=== PATIENT | female | born 1960 | race Caucasian/White ===

== ENCOUNTER 2021-11-02 17:03 | Emergency (ER) | payer OTHER, SELFPAY ==
--- NOTE | ~2021-11-02 | XR_ITS ---
EXAMINATION: XR lumbar spine min 4V DATE: 11/02/2021 18:13 INDICATION: Low back pain. Fall. TECHNIQUE: 5 views of lumbar spine were obtained. COMPARISON: None. FINDINGS: There is 4 degrees dextrocurvature of lumbar spine. There is 3 mm anterolisthesis of L3 on L4 and L4 on L5. Vertebral body heights are normal. There is mildly decreased disc height from L2-L3 through L4-L5. There is multilevel facet joint osteoarthritis, severe bilaterally from L3-L4 through L5-S1. IMPRESSION: 1. Mild lumbar spondylosis. Reviewed, dictated and finalized at location E. [employer] IMPRESSION: 1. Mild lumbar spondylosis.
[2021-11-02 17:06] VITALS: BP 109/72; PULSE 66; RESP 18; TEMP 36.6; O2SAT 98
[2021-11-02] MEDS: HYDROcodone/acetaminophen (*CRX) 5-325 MG TABLET 1 TAB PO (17:50)
--- NOTE | 2021-11-02 18:59 | ED.GENADULT ---
HPI - General Adult General Chief complaint: Fall Stated complaint: fall Time Seen by Provider: 11/02/21 17:11 Source: patient Mode of arrival: ambulatory Limitations: no limitations History of Present Illness HPI narrative: Patient is 61-year-old female presented with chief complaint of falling onto the floor when her chair came from under her in the hospital today during clinicals. Patient reports pain to the right lower back. Patient reports that she hit her left upper arm on the chair but denies any bony tenderness. 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 She denies any head impact or loss of consciousness. Related Data Home Medications Medication Instructions Recorded Confirmed aspirin 81 mg PO DAILY 11/02/21 11/02/21 cetirizine [Zyrtec] 10 mg PO DAILY 11/02/21 11/02/21 furosemide [Lasix] 20 mg PO DAILY 11/02/21 11/02/21 pantoprazole 40 mg PO QAM 11/02/21 11/02/21 potassium chloride 20 meq PO DAILY 11/02/21 11/02/21 rivaroxaban [Xarelto] 20 mg PO DAILY 11/02/21 11/02/21 rosuvastatin 10 mg PO DAILY 11/02/21 11/02/21 Allergies Allergy/AdvReac Type Severity Reaction Status Date / Time Penicillins Allergy Rash Verified 11/02/21 17:52 Review of Systems Review of Systems: CONSTITUTIONAL: Denies fever, chills, or sweats. EYES: Denies visual changes, redness, or discharge. ENT: Denies rhinorrhea, congestion, sore throat, or otalgia. CARDIOVASCULAR: Denies chest pain, palpitations, or edema. RESPIRATORY: Denies cough or dyspnea. GASTROINTESTINAL: Denies abdominal pain, nausea, vomiting, or diarrhea. GENITOURINARY: Denies dysuria or hematuria. SKIN: Denies rash or itching. MUSCULOSKELETAL: Reports back pain, denies joint pain, or myalgia. NEUROLOGIC: Denies headache, numbness, dizziness, or weakness. PSYCHIATRIC: Denies anxiety or depression. Exam Narrative: GENERAL: Well-appearing, well-nourished, and in no acute distress. HEAD: Normocephalic, atraumatic. EYES: PERRLA and EOMI. CHEST: Clear to auscultation. No respiratory distress. No wheezes rales or rhonchi HEART: Regular rate and rhythm. No murmur heard. Normal peripheral pulses. BACK: Right lower back discomfort. Worsened with rotation and flexion. No loss of range of motion to lower extremities or saddle paresthesias. No vertebral point tenderness. EXTREMITIES: Patient denies bony tenderness to left upper extremity. Normal range of motion. Slight edema. SKIN: Warm, dry, no rash. NEURO: No focal deficits. Alert and oriented x3. PSYCH: Normal mood and affect. Course Vital Signs Vital signs: Vital Signs Temperature 97.9 F 11/02/21 17:06 Pulse Rate 66 11/02/21 17:06 Respiratory Rate 18 11/02/21 17:06 Blood Pressure 109/72 11/02/21 17:06 Pulse Oximetry 98 11/02/21 17:06 Temperature 97.9 F 11/02/21 17:06 Pulse Rate 66 11/02/21 17:06 Respiratory Rate 18 11/02/21 17:06 Blood Pressure 109/72 11/02/21 17:06 Pulse Oximetry 98 11/02/21 17:06 Medical Decision Making MDM Narrative Medical decision making narrative: Patient's pain is positional in nature and localized to back without signs of cord compression or cauda equina based on neurological exam, skeletal exam and history. No fever or other significant factors to suggest osteomyelitis or spinal epidural abscess. No symptoms or signs to suggest pain is referred from abdominal or / cardiopulmonary sources. No pulsatile masses noted on exam. Patient ambulates with steady gait and is stable for outpatient management given case findings. Patient declines tramadol and norco for home. Agrees to muscle relaxer. Asks for toradol will give single dose in ER and patient can check with her provider for home due to anticoagulant status. Differential Diagnosis Differential Diagnosis: Fracture, strain, sprain Vital Signs Vital Signs: Vital Signs Temperature 97.9 F 11/02/21 17:06 Pulse Rate 66 11/02/21 17:
[2021-11-02] MEDS: KETOROLAC (*BKC) 60 MG/2 ML VIAL (19:08)
== END 2021-11-02 19:44 | disposition home or self-care (01) ==
PROVIDERS: Emergency Provider Emergency Medicine; PCP Internal Medicine
DX: M54.50 Low back pain, unspecified (principal)
CPT/HCPCS: 72110; 96374; 99284; A9270; J1885